=== PATIENT | male | born 1970 | race Caucasian/White ===

== ENCOUNTER → 2019-06-06 | Outpatient (CLI) | payer OTHER ==
[~2019-06-06] MED LIST: ATEN50TA41 PO; LOVA20TA2 PO; OXYC1TAB8 PO
== END | disposition home or self-care (01) ==
LOC: CFH 12:48
PROVIDERS: ATTEND Urology
DX: K76.0 Fatty (change of) liver, not elsewhere classified (principal); I25.10 Atherosclerotic heart disease of native coronary artery without angina pectoris; I12.9 Hypertensive chronic kidney disease with stage 1 through stage 4 chronic kidney disease, or unspecified chronic kidney disease; K21.9 Gastro-esophageal reflux disease without esophagitis; M47.896 Other spondylosis, lumbar region; N18.9 Chronic kidney disease, unspecified; Z85.528 Personal history of other malignant neoplasm of kidney; Z87.891 Personal history of nicotine dependence
CPT/HCPCS: 74176

== ENCOUNTER 2019-06-12 12:03 | Outpatient (CLI) | payer OTHER | END 2019-06-12 23:59 | disposition home or self-care (01) | LOC: CFH 12:03 | PROVIDERS: ATTEND Physician Assistant Surgical | DX: S92.325A Nondisplaced fracture of second metatarsal bone, left foot, initial encounter for closed fracture (principal); M25.775 Osteophyte, left foot; X58.XXXA Exposure to other specified factors, initial encounter; Y93.89 Activity, other specified; Y92.89 Other specified places as the place of occurrence of the external cause; Y99.8 Other external cause status ==

== ENCOUNTER 2021-02-18 05:53 | Day surgery (SDC) | payer OTHER ==
[~2021-02-18] VITALS: Ht 188 cm; Wt 130.8 kg
[2021-02-18 06:28] VITALS: BP 168/102
[2021-02-18] MEDS ORDERED: [UNRECOGNIZED DRUG - CODE] PO (06:28)
[2021-02-18] MEDS ORDERED: MIDAZOLAM 1 MG/ML, 2ML ONE (06:47)
[2021-02-18] MEDS ORDERED: FENTANYL PF 250 MCG/5ML ONE (06:47)
[2021-02-18] MEDS ORDERED: BUPIVACAINE/PF 0.5% ONE (06:47)
[2021-02-18] MEDS ORDERED: EPINEPHRINE 1 MG/ML, 1ML ONE (06:47)
[2021-02-18] MEDS ORDERED: PROPOFOL 10 MG/ML, 20ML ONE (06:49)
[2021-02-18] MEDS ORDERED: ROCURONIUM 10MG/ML,5ML ONE ×2 (06:49→08:03)
[2021-02-18] MEDS ORDERED: NEOSTIGMINE 1 MG/ML, 10ML ONE (06:49)
[2021-02-18] MEDS ORDERED: CEFAZOLIN 1,000 MG ONE (06:49)
[2021-02-18] MEDS ORDERED: GLYCOPYRROLATE 0.2MG/1ML, 5ML ONE (06:49)
[2021-02-18 06:58] VITALS: BP 146/98
[2021-02-18] MEDS ORDERED: LACTATED RINGERS 1,000 ML IV SCH (07:00)
[2021-02-18] MEDS ORDERED: CHLORHEXIDINE 15 ML UDC PO ONE (07:00)
[2021-02-18] MEDS ORDERED: ONDANSETRON 2MG/ML, 2ML IVPush PRN (07:30)
[2021-02-18] MEDS ORDERED: LABETALOL 5MG/ML, 20ML IV PRN (07:30)
[2021-02-18] MEDS ORDERED: ACETAMINOPHEN 325 MG TABLET PO PRN (07:30)
[2021-02-18] MEDS ORDERED: morphine SULFATE 10 MG/ML, 1ML IVPush PRN (07:30)
[2021-02-18] MEDS ORDERED: OXYcodone 5 MG/5 ML ORAL.SOL UDC PO PRN (07:30)
[2021-02-18] MEDS ORDERED: hydrALAzine 20 MG/ML, 1ML IV PRN (07:30)
[2021-02-18] MEDS ORDERED: MEPERIDINE/PF 25MG/0.5ML IVPush PRN (07:30)
[2021-02-18] MEDS ORDERED: LABETALOL 5MG/ML, 20ML ONE (07:47)
[2021-02-18] MEDS ORDERED: METOPROLOL 1 MG/ML, 5ML ONE (08:24)
[2021-02-18] MEDS ORDERED: FENTANYL PF 100 MCG/2ML ONE ×2 (08:48→10:10)
[2021-02-18] MEDS ORDERED: OXYC-302 PO (09:53)
[2021-02-18] MEDS ORDERED: OXYcodone 5 MG/5 ML ORAL.SOL UDC ONE (10:10)
[2021-02-18] MEDS: FENTANYL PF 100 MCG/2ML IV PRN ×2 (10:16→10:21)
[2021-02-18] MEDS ORDERED: HYDROmorphone 2 MG/ML, 1ML ONE (10:29)
[2021-02-18] MEDS: HYDROmorphone 1 MG/ML, 1ML INJ IVPush PRN ×3 (10:30→10:45)
== END 2021-02-18 15:40 | disposition home or self-care (01) ==
LOC: OR 05:53 → OUT 15:40
PROVIDERS: ATTEND Colon & Rectal Surgery
DX: K43.9 Ventral hernia without obstruction or gangrene (principal); K66.0 Peritoneal adhesions (postprocedural) (postinfection); Z20.822 Contact with and (suspected) exposure to COVID-19; Z79.899 Other long term (current) drug therapy; Z88.0 Allergy status to penicillin
CPT/HCPCS: 49652; C1729; C1781; J0171; J0690; J1170; J2250; J2704; J2710; J3010; J7120; S2900; U0003; U0005